=== PATIENT | male | born 1970 | race African-American/Black ===

== ENCOUNTER 2016-11-17 22:19 | Emergency (ER) | payer OTHER ==
[2016-11-17 23:54] LABS: BASOPHIL % 0.3 % (0-2)
[2016-11-18] LABS: PLATELET COUNT 430 x10^3mcL (130-400)
[2016-11-18 00:04] LABS: CALCIUM 9.4 mg/dL (8.5-10.1); CARBON DIOXIDE 30.6 mmol/L (21-32); CHLORIDE SERUM 104 mmol/L (98-107); CREATININE SERUM 1.3 mg/dL (0.7-1.3); GFR1 > 60 mL/min; GLUCOSE SERUM 87 mg/dL (74-106); POTASSIUM SERUM 4.1 mmol/L (3.5-5.1); SODIUM SERUM 141 mmol/L (136-145)
[2016-11-18 00:06] LABS: ALBUMIN 3.7 g/dL (3.4-5.0); ALKALINE PHOSPHATASE 73 U/L (46-116); ALT/SGPT 27 U/L (16-63); AST/SGOT 16 U/L (15-37); BILIRUBIN TOTAL 0.4 mg/dL (0.20-1.00); TOTAL PROTEIN, SERUM 7.5 g/dL (6.4-8.2)
[2016-11-18 00:18] LABS: CK-MB 0.5 ng/mL (0-3.6)
[2016-11-18 02:20] VITALS: BP 100/72
== END 2016-11-18 02:10 ==
LOC: ED 22:19
PROVIDERS: Emergency Medicine
DX: R53.1 Weakness (principal); R06.02 Shortness of breath; Z88.6 Allergy status to analgesic agent
CPT/HCPCS: 83880; J7030; Q0092